=== PATIENT | female | born 1990 | race Caucasian/White ===

== ENCOUNTER 2018-03-16 12:17 | Emergency (ER) | payer OTHER ==
[~2018-03-16] VITALS: Ht 165.1 cm; Wt 43.1 kg
--- NOTE | 2018-03-16 12:17 | NUR ---
ABDOMINAL/GASTRIC PAIN, ACID REFLUX ~ 1 MONTH. NAD NOTED. PT AAO X4, AMB WITH STEADY GAIT. RR EVEN AND UNLABORED. WANG VILLALPANDO AT BEDSIDE FOR EVAL.
[2018-03-16 13:22] LABS: BASOPHILS # (AUTO) 0.1 /CMM (0.0-0.2); BASOPHILS % (AUTO) 1.4 % (0.0-2.0); EOSINOPHILS % (AUTO) 1.3 % (0.0-6.0); HEMATOCRIT 44 % (33-45); HEMOGLOBIN 14.9 g/dL (11.5-14.8); LYMPHOCYTES # (AUTO) 1.6 /CMM (0.8-4.8); LYMPHOCYTES % (AUTO) 25.6 % (20.0-44.0); MEAN CORPUSCULAR HGB CONC 34 g/dl (31.0-36.0); MEAN CORPUSCULAR VOLUME 87 fL (82-100); MONOCYTES # (AUTO) 0.4 /CMM (0.1-1.30); MONOCYTES % (AUTO) 7.2 % (2.0-12.0); NEUTROPHILS # (AUTO) 3.9 /CMM (1.8-8.9); NEUTROPHILS % (AUTO) 64.5 % (43.0-81.0); PLATELET COUNT (AUTO) 260 /CMM (150-450); RDW COEFFICIENT OF VARIATION 12.5 (11.5-15.0); WHITE BLOOD COUNT (AUTO) 6.1 K/uL (4.3-11.0)
[2018-03-16 13:36] LABS: CALCIUM, SERUM 9.1 mg/dL (8.5-10.1); CREATININE 0.6 mg/dL (0.6-1.3); POTASSIUM 3.2 mmol/L (3.5-5.1)
[2018-03-16 13:43] LABS: ALBUMIN 4.4 g/dL (3.4-5.0); BILIRUBIN,DIRECT 0.1 mg/dL (0.0-0.2); BILIRUBIN,TOTAL 0.4 mg/dL (0.2-1.0); TOTAL PROTEIN, SERUM 7.4 g/dL (6.4-8.2)
[2018-03-16 14:39] LABS: APPEARANCE,URINE Cloudy (CLEAR); BILIRUBIN,URINE Negative (NEGATIVE); BLOOD, URINE Negative Ery/uL (NEGATIVE); COLOR,URINE Light yellow (YELLOW); KETONES,URINE Negative (NEGATIVE); LEUKOCYTE ESTERASE ,URINE Negative (NEGATIVE); NITRITE, URINE Negative (NEGATIVE); PH,URINE 8.5 (5.0-8.0); PROTEIN,URINE Negative (NEGATIVE); UGLUCOSE Negative (NEGATIVE); UROBILINOGEN,URINE 0.2 EU/dL (0.2)
[2018-03-16] MEDS ORDERED: LIDOCAINE VISCOUS 2% UD 15 ML UDC MM ONE (15:00)
[2018-03-16] MEDS ORDERED: MAG HYDROX/AL HYDROX/SIMETH 30 ML UDC PO ONE (15:00)
[2018-03-16 15:02] LABS: BACTERIA,URINE Few /HPF (None Seen); RBC,URINE 0-2 /HPF (0-2); SQUAMOUS EPITHELIAL CELL,UR Rare /HPF (None Seen); URINE AMORPHOUS PHOSPHATES Many /HPF (None Seen); WBC,URINE 0-2 /HPF (0-3)
[2018-03-16] MEDS ORDERED: MAG HYDROX/AL HYDROX/SIMETH 30 ML UDC ONE (15:12)
[2018-03-16] MEDS ORDERED: LIDOCAINE VISCOUS 2% UD 15 ML UDC ONE (15:12)
[2018-03-16 16:02] VITALS: BP 119/65
== END 2018-03-16 16:03 | disposition home or self-care (01) ==
LOC: ER 12:19
DX: R10.12 Left upper quadrant pain (principal)
CPT/HCPCS: 36415; 71045-TC; 80048-TC; 80076-TC; 81000-TC; 83690-TC; 84703-TC; 85025-TC; A4606; Z7610

== ENCOUNTER 2018-03-24 13:24 | Emergency (ER) | payer OTHER ==
[~2018-03-24] VITALS: Ht 160 cm; Wt 39.9 kg
--- NOTE | 2018-03-24 13:46 | NUR ---
PATIENT TO ED DT LUQ/LLQ ABDOMINAL PAIN X ONE MONTH, WORST TODAY. PATIENT IS AWAKE AND ALERT. APPEARS IN NO DISTRESS. RESPIRATION EVEN AND UNLABORED. SKIN IS WARM TO TOUCH AND NON DIAPHORETIC. PATIENT IS AFEBRILE. VSS
[2018-03-24] MEDS ORDERED: KETOROLAC TROMETHAMINE INJ 60 MG/2 ML VIAL IM ONE (14:00)
[2018-03-24] MEDS ORDERED: KETOROLAC TROMETHAMINE INJ 30 MG/ML VIAL ONE (14:08)
--- NOTE | 2018-03-24 16:09 | NUR ---
Patient discharged to home in stable condition. Written and verbal after care instructions given. Patient verbalizes understanding of instruction.
[2018-03-24 16:14] VITALS: BP 107/74
== END 2018-03-24 16:17 | disposition home or self-care (01) ==
LOC: ER 13:26
DX: R10.32 Left lower quadrant pain (principal); F41.9 Anxiety disorder, unspecified; F12.10 Cannabis abuse, uncomplicated
CPT/HCPCS: 76700; 76856; 96372; 99284; 99406; A4606; J1885; Z7610

== ENCOUNTER 2018-05-05 13:22 | Emergency (ER) | payer SELFPAY ==
[~2018-05-05] VITALS: Ht 165.1 cm; Wt 41.7 kg
[2018-05-05 13:32] VITALS: BP 105/61
[2018-05-05] MEDS ORDERED: ACETAMINOPHEN ES 500 MG TABLET PO ONE (14:30)
[2018-05-05] MEDS ORDERED: IBUPROFEN 600 MG TABLET PO ONE ×2 (14:30→14:45)
[2018-05-05] MEDS ORDERED: ALBUTEROL FS 2.5 MG/3 ML VIAL.NEB CONTNEB ONE (14:30)
[2018-05-05] MEDS ORDERED: IV NS 0.9% 1,000 ML BAG IV ONE (14:30)
[2018-05-05] MEDS ORDERED: IPRATROPIUM NEB FS 0.5 MG/2.5 ML AMPUL.NEB NEB ONE (14:30)
[2018-05-05] MEDS ORDERED: ALBUTEROL FS 2.5 MG/3 ML VIAL.NEB ONE (14:42)
[2018-05-05] MEDS ORDERED: IPRATROPIUM NEB FS 0.5 MG/2.5 ML AMPUL.NEB ONE (14:42)
[2018-05-05] MEDS ORDERED: ACETAMINOPHEN ES 500 MG TABLET ONE (14:44)
[2018-05-05] MEDS ORDERED: IBUPROFEN SUSP 100 MG/5 ML UDC ONE (14:49)
[2018-05-05] MEDS ORDERED: ACETAMINOPHEN 650 MG/20.3 ML UDC ONE (14:49)
== END 2018-05-05 15:56 | disposition home or self-care (01) ==
LOC: ER 13:22
DX: J06.9 Acute upper respiratory infection, unspecified (principal)
CPT/HCPCS: 94640; 99284; A4606; J7030; Z7610

== ENCOUNTER 2018-05-06 20:54 | Emergency (ER) | payer SELFPAY ==
[~2018-05-06] VITALS: Ht 175.3 cm; Wt 40.4 kg
[2018-05-06] MEDS ORDERED: AZITHROMYCIN 250 MG TABLET ONE (21:20)
--- NOTE | 2018-05-06 21:24 | NUR ---
bb self; "fever, not feeling well on and off x 8 days". pt is aaox4. skin wnl. resp even and unlabored. no s/s of distress noted. pt resting comfortably in bed. pt placed on monitor and pox. bedside for eval
[2018-05-06] MEDS ORDERED: AZITHROMYCIN 250 MG TABLET PO ONE (21:30)
[2018-05-06] MEDS ORDERED: IV NS 0.9% 1,000 ML BAG IV ONE (21:30)
--- NOTE | 2018-05-06 22:15 | NUR ---
Patient discharged to home in stable condition. Written and verbal after care instructions given. Patient verbalizes understanding of instruction.IV removed. Catheter intact and site benign. Pressure and 4x4 applied to site. No bleeding noted. NO S/S OF DISTRESS NOTED UPON DISCHARGE
[2018-05-06 22:16] VITALS: BP 119/76
== END 2018-05-06 22:18 | disposition home or self-care (01) ==
LOC: ER 20:56
DX: R50.9 Fever, unspecified (principal); Z60.2 Problems related to living alone; F12.10 Cannabis abuse, uncomplicated
CPT/HCPCS: A4606; J7030; Z7610

== ENCOUNTER 2019-08-21 23:29 | Emergency (ER) | payer SELFPAY ==
[~2019-08-21] VITALS: Ht 165.1 cm; Wt 44.0 kg
[2019-08-22] MEDS ORDERED: IV NS 0.9% 1,000 ML BAG IV ONE
--- NOTE | 2019-08-22 00:01 | NUR ---
PT CAME TO ER WITH C/O OF ABDOMINAL PAIN 03/25. PATIENT CLAIMS TO HAVE HX OF IBS. PT SAYS THAT THERE HAS BEEN BOWEL MOVEMENT OF BLOOD. AAOX4. NO SOB. NOT IN ANY DISTRESS. WILL CONTINUE TO MONITOR.
[2019-08-22 00:17] LABS: BASOPHILS % (AUTO) 0.7 % (0.0-2.0); EOSINOPHILS % (AUTO) 2.4 % (0.0-6.0); HEMATOCRIT 44 % (33-45); HEMOGLOBIN 14.5 g/dL (11.5-14.8); LYMPHOCYTES % (AUTO) 26.6 % (20.0-44.0); MEAN CORPUSCULAR HGB CONC 33 g/dl (31.0-36.0); MEAN CORPUSCULAR VOLUME 91 fL (82-100); MONOCYTES # (AUTO) 0.5 /CMM (0.1-1.30); MONOCYTES % (AUTO) 7.1 % (2.0-12.0); NEUTROPHILS # (AUTO) 4.8 /CMM (1.8-8.9); NEUTROPHILS % (AUTO) 63.2 % (43.0-81.0); PLATELET COUNT (AUTO) 257 /CMM (150-450); RED BLOOD CELL COUNT(AUTO) 4.88 MIL/uL (4.0-5.2); WHITE BLOOD COUNT (AUTO) 7.5 K/uL (4.3-11.0)
[2019-08-22 00:26] LABS: CALCIUM, SERUM 8.9 mg/dL (8.5-10.1); CREATININE 0.5 mg/dL (0.6-1.3); POTASSIUM 3.7 mmol/L (3.5-5.1)
[2019-08-22 00:32] LABS: ALBUMIN 3.8 g/dL (3.4-5.0); BILIRUBIN,TOTAL 0.2 mg/dL (0.2-1.0); TOTAL PROTEIN, SERUM 7.3 g/dL (6.4-8.2)
[2019-08-22 01:33] VITALS: BP 112/76
--- NOTE | 2019-08-22 01:33 | NUR ---
IV removed. Catheter intact and site benign. Pressure and 4x4 applied to site. No bleeding noted. Patient discharged to home in stable condition. Written and verbal after care instructions given. Patient verbalizes understanding of instruction.
== END 2019-08-22 01:34 | disposition home or self-care (01) ==
LOC: ER 23:33
DX: R10.31 Right lower quadrant pain (principal); R19.7 Diarrhea, unspecified; Z60.2 Problems related to living alone
CPT/HCPCS: 36415; 80048; 80076; 83690; 85025; 96360; 99283; J7030